=== PATIENT | male | born 1950 | race Caucasian/White ===

== ENCOUNTER 2017-01-02 15:05 | Emergency (ER) | payer MEDICARE, OTHER ==
[2017-01-02] MEDS ORDERED: SODIUM CHLORIDE 0.9% 500 ML IV STA (15:30)
[2017-01-02] MEDS ORDERED: IOHEXOL 350 MG/ML 25 ML BOTTLE (ORAL USE) PO PRN (15:30)
[2017-01-02] MEDS ORDERED: ONDANSETRON 4 MG/2 ML VIAL IVP STA (15:30)
[2017-01-02] MEDS ORDERED: SODIUM CHLORIDE 0.9% 1,000 ML IV STA (15:30)
[2017-01-02] MEDS ORDERED: RX INFO: IV CONTRAST WAS GIVEN 1 EACH MISC MISCELLANE PRN (15:30)
[2017-01-02] MEDS ORDERED: HYDROmorphone 0.5 MG/0.5 ML SYRINGE IVP STA (15:30)
--- NOTE | 2017-01-02 15:35 | ED ---
General Adult HPI - General Chief complaint: Abdominal Pain Stated complaint: chest pain Time Seen by Provider: 01/02/17 15:14 Source: patient, RN notes reviewed Mode of arrival: wheelchair Limitations: no limitations - History of Present Illness Initial comments: 66 yo male with history of hypertension diabetes presents for evaluation of abdominal pain and belching. Patient states over the past 3 days he has had worsening upper abdominal pain and bloating. Patient states he did have a bowel movement yesterday which was normal. He has been passing gas. He has remote history of hernia repair. Denies fever or chills. Denies vomiting, states he has had nausea and constant belching. Denies chest pain or shortness of breath. Patient states he was evaluated at his primary care physician's office yesterday, EKG was obtained and according to the patient EKG was abnormal and he was scheduled to see cardiology as an outpatient. - Related Data Home Medications Medication Instructions Recorded Confirmed Cyanocobalamin [Vitamin B-12] 500 mcg PO DAILY 01/02/17 01/02/17 Febuxostat [Uloric] 80 mg PO DAILY 01/02/17 01/02/17 Insulin Lispro [Humalog] 6 - 15 unit SQ TID PRN 01/02/17 01/02/17 Lisinopril [Zestril] 10 mg PO DAILY 01/02/17 01/02/17 Ulm-3 Fatty Acids/Fish Oil [Fish 1 cap PO DAILY 01/02/17 01/02/17 Oil 1,000 mg Softgel] Ubidecarenone [Co Q-10] 100 mg PO DAILY 01/02/17 01/02/17 Vitamin E 100 unit PO DAILY 01/02/17 01/02/17 metFORMIN HCL [Glucophage] 500 mg PO DAILY 01/02/17 01/02/17 Previous Rx's Medication Instructions Recorded HYDROcodone/APAP 5-325MG [[place] 1 tab PO Q6HR PRN #12 tab 01/02/17 5-325] Ibuprofen [Motrin] 600 mg PO Q8HR PRN #24 tab 01/02/17 Allergies Allergy/AdvReac Type Severity Reaction Status Date / Time No Known Allergies Allergy Verified 01/02/17 16:23 Review of Systems ROS Statement: Those systems with pertinent positive or pertinent negative responses have been documented in the HPI. ROS Other: All systems not noted in ROS Statement are negative. Past Medical History Past Medical History: Diabetes Mellitus, Hypertension Additional Past Medical History / Comment(s): gout History of Any Multi-Drug Resistant Organisms: None Reported Past Surgical History: Back Surgery Past Psychological History: No Psychological Hx Reported Smoking Status: Former smoker Past Alcohol Use History: Occasional Past Drug Use History: None Reported General Exam Limitations: no limitations General appearance: alert, in distress Head exam: Present: atraumatic, normocephalic Eye exam: Present: normal appearance, PERRL ENT exam: Present: normal exam Neck exam: Present: normal inspection, full ROM. Absent: tenderness, meningismus Respiratory exam: Absent: normal lung sounds bilaterally, respiratory distress, wheezes Cardiovascular Exam: Present: regular rate, normal rhythm GI/Abdominal exam: Present: soft, distended, tenderness (Tenderness palpation, worse in the bilateral upper quadrants) Extremities exam: Present: normal inspection, normal capillary refill. Absent: pedal edema Neurological exam: Present: alert, oriented X3, CN II-XII intact. Absent: motor sensory deficit Psychiatric exam: Present: normal affect, normal mood Skin exam: Present: warm, dry, intact. Absent: cyanosis, diaphoretic Course Vital Signs 01/02/17 01/02/17 15:08 15:17 Temperature 98.2 F Pulse Rate 59 L 70 Respiratory 22 22 Rate Blood Pressure 174/108 159/97 O2 Sat by Pulse 99 100 Oximetry Medical Decision Making - Medical Decision Making 66 yo male presenting with chief complaint of abdominal pain, distention, and nausea. No chest pain or shortness of breath. Symptoms present for 3 days. X- rays obtained, shows enteritis first dose. Patient is having bowel movements and passing gas. No nausea or vomiting. Laboratory studies reveal normal lactic acid 1.9, white blood cell count of 9.9, hemoglobin 15.6. CT is obtained , shows wall thickening of the distal ileum and ascending colon infectious versus ileitis. On reevaluation patient is feeling much better, pain is resolved. Patient is offered observation, however he feels he is feeling well enough to go home. He will return the emergency department with development of nausea vomiting, worsening abdominal pain, decreased stool output, or bloody diarrhea. Patient will follow-up with garage manager. He will also return to emergency department with symptoms of chest pain or shortness of breath. Regarding EKG findings from primary care physician, EKG is unchanged no ST segment elevation, no T-wave inversion, normal sinus rhythm ventricular rate 70 , IL of 128, QRS duration 92, QTC 421, possible ectopic atrial rhythm. Patient will maintain his appointment with cardiology. - Lab Data Result diagrams: 01/02/17 15:12 01/02/17 15:12 Lab Results 01/02/17 01/02/17 01/02/17 Range/Units 15:12 15:12 15:12 WBC 9.9 (3.8-10.6) k/uL RBC 5.49 (4.30-5.90) m/uL Hgb 15.6 (13.0-17.5) gm/dL Hct 50.2 (39.0-53.0) % MCV 91.3 (80.0-100.0) fL MCH 28.4 (25.0-35.0) pg MCHC 31.1 (31.0-37.0) g/dL RDW 14.4 (11.5-15.5) % Plt Count 323 (150-450) k/uL Neutrophils % 57 % Lymphocytes % 31 % Monocytes % 7 % Eosinophils % 2 % Basophils % 1 % Neutrophils # 5.7 (1.3-7.7) k/uL Lymphocytes # 3.1 (1.0-4.8) k/uL Monocytes # 0.7 (0-1.0) k/uL Eosinophils # 0.2 (0-0.7) k/uL Basophils # 0.1 (0-0.2) k/uL PT (9.0-12.0) sec INR (<1.2) APTT (22.0-30.0) sec Sodium 137 (137-145) mmol/L Potassium 4.3 (3.5-5.1) mmol/L Chloride 100 (98-107) mmol/L Carbon Dioxide 25 (22-30) mmol/L Anion Gap 12 mmol/L BUN 16 (9-20) mg/dL Creatinine 1.00 (0.66-1.25) mg/dL Est GFR (MDRD) Af Amer >60 (>60 ml/min/1.73 sqM) Est GFR (MDRD) Non-Af >60 (>60 ml/min/1.73 sqM) Glucose 200 H (74-99) mg/dL Plasma Lactic Acid Gopal (0.7-2.0) mmol/L Calcium 10.1 (8.4-10.2) mg/dL Total Bilirubin 0.6 (0.2-1.3) mg/dL AST 20 (17-59) U/L ALT 40 (21-72) U/L Alkaline Phosphatase 72 (38-126) U/L Total Creatine Kinase 61 (55-170) U/L CK-MB (CK-2) 0.8 (0.0-2.4) ng/mL CK-MB (CK-2) Rel Index 1.3 Troponin I <0.012 (0.000-0.034) ng/mL Total Protein 7.3 (6.3-8.2) g/dL Albumin 4.3 (3.5-5.0) g/dL Amylase <30 L (30-110) U/L Lipase 39 (23-300) U/L 01/02/17 01/02/17 Range/Units 15:12 16:00 WBC (3.8-10.6) k/uL RBC (4.30-5.90) m/uL Hgb (13.0-17.5) gm/dL Hct (39.0-53.0) % MCV (80.0-100.0) fL MCH (25.0-35.0) pg MCHC (31.0-37.0) g/dL RDW (11.5-15.5) % Plt Count (150-450) k/uL Neutrophils % % Lymphocytes % % Monocytes % % Eosinophils % % Basophils % % Neutrophils # (1.3-7.7) k/uL Lymphocytes # (1.0-4.8) k/uL Monocytes # (0-1.0) k/uL Eosinophils # (0-0.7) k/uL Basophils # (0-0.2) k/uL PT 10.2 (9.0-12.0) sec INR 1.0 (<1.2) APTT 25.0 (22.0-30.0) sec Sodium (137-145) mmol/L Potassium (3.5-5.1) mmol/L Chloride (98-107) mmol/L Carbon Dioxide (22-30) mmol/L Anion Gap mmol/L BUN (9-20) mg/dL Creatinine (0.66-1.25) mg/dL Est GFR (MDRD) Af Amer (>60 ml/min/1.73 sqM) Est GFR (MDRD) Non-Af (>60 ml/min/1.73 sqM) Glucose (74-99) mg/dL Plasma Lactic Acid Gopal 1.9 (0.7-2.0) mmol/L Calcium (8.4-10.2) mg/dL Total Bilirubin (0.2-1.3) mg/dL AST (17-59) U/L ALT (21-72) U/L Alkaline Phosphatase (38-126) U/L Total Creatine Kinase (55-170) U/L CK-MB (CK-2) (0.0-2.4) ng/mL CK-MB (CK-2) Rel Index Troponin I (0.000-0.034) ng/mL Total Protein (6.3-8.2) g/dL Albumin (3.5-5.0) g/dL Amylase (30-110) U/L Lipase (23-300) U/L Disposition Clinical Impression: Enteritis Disposition: HOME SELF-CARE Condition: Good Instructions: Enteritis (ED) Prescriptions: HYDROcodone/APAP 5-325MG [[place] 5-325] 1 tab PO Q6HR PRN #12 tab PRN Reason: Pain Ibuprofen [Motrin] 600 mg PO Q8HR PRN #24 tab PRN Reason: Pain Referrals: Holly Lopez MD [Primary Care Provider] - 1-2 days Breezy Johnston MD [STAFF PHYSICIAN] - 1-2 days Time of Disposition: 17:08
[2017-01-02 15:43] LABS: Basophils # (A) 0.1 k/uL (0-0.2); Basophils % (A) 1 %; CH 28.6; CHCM 31.5; Eosinophils # (A) 0.2 k/uL (0-0.7); Eosinophils % (A) 2 %; HCT 50.2 % (39.0-53.0); HDW 2.34; HGB 15.6 gm/dL (13.0-17.5); Luc # (Auto) 0.11; Luc % (Auto) 1; Lymphocytes # (A) 3.1 k/uL (1.0-4.8); Lymphocytes % (A) 31 %; MCH 28.4 pg (25.0-35.0); MCHC 31.1 g/dL (31.0-37.0); MCV 91.3 fL (80.0-100.0); Mean Platelet Volume 8.3; Monocytes # (A) 0.7 k/uL (0-1.0); Monocytes % (A) 7 %; Neutrophils # (A) 5.7 k/uL (1.3-7.7); Neutrophils % (A) 57 %; RBC 5.49 m/uL (4.30-5.90); RDW 14.4 % (11.5-15.5); WBC 9.9 k/uL (3.8-10.6); WBC (Perox) 9.52
[2017-01-02 15:52] LABS: ALT 40 U/L (21-72); AST 20 U/L (17-59); Alkaline Phosphatase 72 U/L (38-126); Amylase <30 U/L (30-110); Anion Gap 12 mmol/L; Blood Urea Nitrogen 16 mg/dL (9-20); Calcium 10.1 mg/dL (8.4-10.2); Carbon Dioxide 25 mmol/L (22-30); Chloride 100 mmol/L (98-107); Glucose 200 mg/dL (74-99); Non-African American GFR(MDRD) >60 (>60 ml/min/1.73 sqM); Potassium 4.3 mmol/L (3.5-5.1); Prothrombin Time 10.2 sec (9.0-12.0); Sodium 137 mmol/L (137-145); Total Bilirubin 0.6 mg/dL (0.2-1.3); Total Protein 7.3 g/dL (6.3-8.2)
[2017-01-02 16:03] LABS: Creatine Kinase 61 U/L (55-170)
[2017-01-02 16:16] LABS: Creatine Kinase MB 0.8 ng/mL (0.0-2.4); Troponin I <0.012 ng/mL (0.000-0.034)
--- NOTE | 2017-01-02 16:19 | XR ---
EXAMINATION TYPE: XR KUB DATE OF EXAM: 01/02/2017 CLINICAL DATA: 66-year-old male with abdominal pain, PHH COMPARISON: None FINDINGS: Lung bases are clear. No evidence for free intraperitoneal air. Some scattered air-fluid levels within the right hemicolon and central small bowel. No dilated small bowel seen. Air and stool extends distally into the rectum. Mild overall stool burden. No suspicious calcifications seen. IMPRESSION: No evidence for free air or bowel obstruction. Scattered small bowel and colonic air-fluid levels sug gests enteritis or ileus.
--- NOTE | 2017-01-02 16:39 | CT ---
EXAMINATION TYPE: CT abdomen pelvis w con DATE OF EXAM: 01/02/2017 COMPARISON: NONE HISTORY: 66-year-old male abdominal and Stomach pains TECHNIQUE: Contiguous axial scanning of the abdomen and pelvis following administration of 100 ml Omn ipaque 300 IV contrast. Delayed images through the kidneys and coronal/sagittal reconstructions perf ormed. CT DLP: 1140.5 mGycm Automated exposure control for dose reduction was used. FINDINGS: The heart is normal size without pericardial effusion. Strandy atelectasis in the lower lungs. No ple ural effusion. There is a small hiatal hernia. Borderline ectatic lower descending thoracic aorta 2.5 cm. Numerous hypodense lesions within the liver, most are subcentimeter, largest measuring 1.3 cm in the left lobe. All of these are too small for accurate CT characterization and likely represent cysts. Portal venous system is patent. No biliary ductal dilatation. Gallbladder hydropic at 4.5 cm wide but without any surrounding inflammatory change. Adrenal glands, kidneys, spleen, atrophic pancreas show no gross abnormality. No dilated small bowel, free fluid, or free air. Scattered small mesenteric lymph nodes. Surgical material at the umbilicus suggesting prior hernia repair. Some mild fold thickening of distal ileal loops and liquid stool in the ascending colon. Otherwise, m oderate stool throughout the remainder of the colon. No pericolonic inflammatory change. Prostate gland mildly enlarged at 4.8 cm wide. Bladder is urine distended. No abnormal fluid collecti on in the pelvis or pelvic lymphadenopathy seen. Bones: Mild degenerative changes at the hips and lower lumbar spine. No osseous destructive process. Grade 1 retrolisthesis at L3-L4. IMPRESSION: 1. Wall thickening of distal ileal loops and liquid stool in the ascending colon. Findings suggest in fectious or inflammatory ileitis. 2. Hydropic gallbladder likely relates to fasting state. No surrounding inflammatory changes. If conc chrystal for early acute cholecystitis, follow-up ultrasound or HIDA scan. 3. Small hiatal hernia.
[2017-01-02 17:38] VITALS: BP 145/93; PULSE 60; RESP 16; TEMP 97.9
== END 2017-01-02 17:35 | disposition home or self-care (01) ==
LOC: EC 15:05
DX: K52.9 Noninfective gastroenteritis and colitis, unspecified (principal); R14.2 Eructation; E11.9 Type 2 diabetes mellitus without complications; I10 Essential (primary) hypertension; Z87.891 Personal history of nicotine dependence; Z79.84 Long term (current) use of oral hypoglycemic drugs; Z79.899 Other long term (current) drug therapy
CPT/HCPCS: 36415; 93005; 80053; 82150; 82550; 82553; 83605; 83690; 84484; 85025; 85610; 85730; 74000; 74177; 99284; 96374; 96375; 96361 ×2; J2405; Q9967; J1170

== ENCOUNTER → 2019-12-17 | Outpatient (CLI) | payer MEDICARE, OTHER | END | disposition home or self-care (01) | LOC: LABWHC1 15:50 | PROVIDERS: ATTEND Emergency Medicine | DX: Z20.828 Contact with and (suspected) exposure to other viral communicable diseases (principal) | CPT/HCPCS: U0003; C9803 ==

== ENCOUNTER → 2019-12-26 | Outpatient (CLI) | payer MEDICARE, OTHER | END | disposition home or self-care (01) | LOC: LABWHC1 09:12 | PROVIDERS: ATTEND Emergency Medicine | DX: Z20.828 Contact with and (suspected) exposure to other viral communicable diseases (principal) | CPT/HCPCS: U0003; C9803 ==

== ENCOUNTER → 2021-03-07 | Outpatient (CLI) | payer MEDICARE ==
--- NOTE | 2021-03-07 13:23 | XR ---
Cervical spine HISTORY: Neck pain 4 views of the cervical spine There is multilevel facet arthropathy. Multilevel spondylosis is present. Cervical vertebral bodies s how preserved height. Bone mineralization is reduced. There are atherosclerotic vascular calcificatio ns present in the distribution of the carotid arteries. Loss of disc height present at C5-6, C6-7. M inimal retrolisthesis grade 1 C2-3. The vertebral soft tissues are normal. IMPRESSION: Degenerative disc disease and facet arthropathy.
--- NOTE | 2021-03-07 13:24 | XR ---
Left shoulder HISTORY: Pain 2 views the left shoulder Acromioclavicular joint shows arthropathy. Left upper lobe is unremarkable. Aorta is dense. Bone mineralization, alignment are maintained. No fracture or dislocation. No external rotation view submitted. IMPRESSION: Acromioclavicular joint arthropathy.
== END | disposition home or self-care (01) ==
LOC: RADXRMAIN 10:57
PROVIDERS: ATTEND Internal Medicine
DX: M47.812 Spondylosis without myelopathy or radiculopathy, cervical region (principal); M50.30 Other cervical disc degeneration, unspecified cervical region; M12.812 Other specific arthropathies, not elsewhere classified, left shoulder
CPT/HCPCS: 72040

== ENCOUNTER 2024-02-18 09:19 | Inpatient (IN) | payer MEDICARE ==
--- NOTE | 2024-02-18 10:18 | ED ---
Fall HPI - General Chief Complaint: Fall Stated Complaint: lt shoulder pain Time Seen by Provider: 02/18/24 10:17 Source: patient, RN notes reviewed Mode of arrival: wheelchair Limitations: no limitations - History of Present Illness Initial Comments: 73-year-old male presented to ER for evaluation of fall and hypertension. Patient sent by urgent care. Patient states on 02-16-2024 he was taking his dog to the dog park. The dog pulled to play with another dog whilst on the leash causing patient to fall. He states he landed on his left shoulder and left side. He denies head injury, loss of consciousness, dizziness or lightheadedness prior to fall. No blood thinner use. Patient reports his glasses did hit the ground causing him to have an abrasion to his left cheek. Tetanus is up-to-date. Patient states since then he has been having progressive worsening of left shoulder/back pain since fall. He states it hurts to sit, stand or move. He denies any paresthesias to left upper extremity. He does report pain to his left back especially with inspiration. He has taken [id number] ibuprofen without relief. Patient was seen at urgent care today for x-rays and was found to be hypertensive and tachycardic. Patient denies any current chest pain, shortness of breath, dizziness or lightheadedness. No history of blood clots, recent travel or calf tenderness. Patient had does not take any medications for blood pressure. Patient states he has taken lisinopril in the past but has not "in awhile". He states when he was taking it he was only taking it as needed when he felt "off". - Related Data Home Medications Medication Instructions Recorded Confirmed Insulin NPH Hum/Reg Insulin Hm 30 unit SQ AC-BID 02/18/24 02/18/24 [NovoLIN 70-30 100 Unit/ml Vial] Allergies Allergy/AdvReac Type Severity Reaction Status Date / Time No Known Allergies Allergy Verified 02/18/24 12:55 Review of Systems ROS Statement: Those systems with pertinent positive or pertinent negative responses have been documented in the HPI. ROS Other: All systems not noted in ROS Statement are negative. Past Medical History Past Medical History: Diabetes Mellitus, Hypertension Additional Past Medical History / Comment(s): gout History of Any Multi-Drug Resistant Organisms: None Reported Past Surgical History: Back Surgery Past Psychological History: No Psychological Hx Reported Smoking Status: Never smoker Past Alcohol Use History: Occasional Past Drug Use History: None Reported General Exam Limitations: physical limitation General appearance: alert, in no apparent distress Head exam: Present: atraumatic, normocephalic, normal inspection Eye exam: Present: normal appearance, PERRL, EOMI. Absent: scleral icterus, conjunctival injection, periorbital swelling Pupils: Present: normal accommodation Respiratory exam: Present: normal lung sounds bilaterally. Absent: respiratory distress, wheezes, rales, rhonchi, stridor Cardiovascular Exam: Present: normal rhythm, tachycardia, normal heart sounds Neurological exam: Present: alert, oriented X3, CN II-XII intact Skin exam: Present: warm, dry, intact, normal color, abrasion (left cheek). Absent: rash Course Vital Signs 02/18/24 02/18/24 02/18/24 09:46 10:30 11:20 Temperature 97.7 F Pulse Rate 129 H 138 H 135 H Respiratory 18 18 18 Rate Blood Pressure 159/103 138/99 129/103 O2 Sat by Pulse 98 99 98 Oximetry 02/18/24 02/18/24 14:41 15:30 Temperature Pulse Rate 133 H 133 H Respiratory 18 18 Rate Blood Pressure 126/105 139/78 O2 Sat by Pulse 97 98 Oximetry - Reevaluation(s) Reevaluation #1: 02/18/24 13:01 Case discussed with [facility] Dr.Mullally evans for admission. Medical Decision Making - Medical Decision Making Was pt. sent in by a medical professional or institution (, PA, SPREADER OPERATOR AUTOMATIC, urgent care, hospital, or group home...) When possible be specific @ -Patient sent by urgent care for evaluation of tachycardia and hypertension. Did you speak to anyone other than the patient for history (EMS, parent, family, police, friend...)? What history was obtained from this source @ -No Did you review nursing and triage notes (agree or disagree)? Why? @ -I reviewed and agree with nursing and triage notes Were old charts reviewed (outside hosp., previous admission, EMS record, old EKG, old radiological studies, urgent care reports/EKG's, group home records)? Report findings @ -No old charts were reviewed Differential Diagnosis (chest pain, altered mental status, abdominal pain women, abdominal pain men, vaginal bleeding, weakness, fever, dyspnea, syncope, headache, dizziness, GI bleed, back pain, seizure, CVA, palpatations, mental health, musculoskeletal)? @ -Differential Palpitations: Ventricular arrhythmias, atrial arrhythmias, myocardial infarction, anemia, thyrotoxicosis, electrolyte imbalance, hypokalemia, pulmonary embolism, pulmonary disease, drugs, alcohol, anxiety, stress.... This is not meant to be an all-inclusive list. EKG interpreted by me (3pts min.). @ -As above X-rays interpreted by me (1pt min.). @ -Left ribs AP chest x-ray interpreted by me remarkable for irregularities noted to fifth and seventh rib concerning of fractures. No acute cardiopulmonary process. CT interpreted by me (1pt min.). @ -None done U/S interpreted by me (1pt. min.). @ -None done What testing was considered but not performed or refused? (CT, X-rays, U/S, labs)? Why? @ -None What meds were considered but not given or refused? Why? @ -None Did you discuss the management of the patient with other professionals (professionals i.e. , PA, SPREADER OPERATOR [employer], lab, RT, psych nurse, director social service, oiler helper, teacher, special loan officer, case sealer)? Give summary @ -Case discussed with Dr. Meyer for admission. Was smoking cessation discussed for >3mins.? @ -No Was critical care preformed (if so, how long)? @ -No Were there social determinants of health that impacted care today? How? (Homelessness, low income, unemployed, alcoholism, drug addiction, transportation, low edu. Level, literacy, decrease access to med. care, correction, rehab)? @ -Patient currently does not have a PCP as his recently retired. Was there de-escalation of care discussed even if they declined (Discuss DNR or withdrawal of care, Hospice)? DNR status @ -No What co-morbidities impacted this encounter? (DM, HTN, Smoking, COPD, CAD, Cancer, CVA, ARF, Chemo, Hep., AIDS, mental health diagnosis, sleep apnea, morbid obesity)? @ -None Was patient admitted / discharged? Hospital course, mention meds given and route, prescriptions, significant lab abnormalities, going to OR and other pertinent info. @ -Admitted. 73-year-old male presented the ER for evaluation of tachycardia/hypertension. Patient sent by urgent care. Upon evaluation, patient tachycardic at 129 bpm and hypertensive 159/103. Patient afebrile. Vitals otherwise within acceptable limits. Patient has tenderness to posterior left ribs with no overlying skin changes. No paradoxical chest wall motions. No acute neurological findings on exam. GCS 15. Given tachycardia cardiac workup will be obtained. EKG showing sinus tachycardia with inverted T waves in lead III and aVF. No ST segment changes. Laboratory studies showing a leukocytosis 12.2 with a left shift. D-dimer negative at 0.48. Troponin undetectable <0.012. CMP unremarkable. Chest x-ray showing mild displacment of 5th and 7th left ribs. CXR findings likely due from fall. Patient received IV fluids in the ER. Patient given lidocaine patch and ibuprofen for pain control due to rib fractures. Given tachycardia with unknown etiology admission was considered and discussed with Dr. Meyer for cardiac consult. Cardiology on consult. Upon reevaluation, patient resting comfortably in exam room no signs of acute distress. Patient is agreeable for admission. Case discussed with ED attending, Dr. Munroe. Undiagnosed new problem with uncertain prognosis? @ -No Drug Therapy requiring intensive monitoring for toxicity (Heparin, Nitro, Insulin, Cardizem)? @ -No Were any procedures done? @ -No Diagnosis/symptom? @ -Tachycardia/rib fractures Acute, or Chronic, or Acute on Chronic? @ -Acute Uncomplicated (without systemic symptoms) or Complicated (systemic symptoms)? @ -Complicated Side effects of treatment? @ -No Exacerbation, Progression, or Severe Exacerbation? @ -No Poses a threat to life or bodily function? How? (Chest pain, USA, AL, pneumonia, PE, COPD, DKA, ARF, appy, cholecystitis, CVA, Diverticulitis, Homicidal, Suicidal, threat to staff... and all critical care pts) @ -Yes - Lab Data Result diagrams: 02/18/24 10:35 02/18/24 10:35 Lab Results 02/18/24 02/18/24 02/18/24 Range/Units 10:35 10:35 10:35 WBC 12.2 H (3.8-10.6) k/uL RBC 5.23 (4.30-5.90) m/uL Hgb 15.1 (13.0-17.5) gm/dL Hct 47.6 (39.0-53.0) % MCV 91.0 (80.0-100.0) fL MCH 28.9 (25.0-35.0) pg MCHC 31.8 (31.0-37.0) g/dL RDW 13.4 (11.5-15.5) % Plt Count 293 (150-450) k/uL MPV 9.7 Neutrophils % 72 % Lymphocytes % 18 % Monocytes % 6 % Eosinophils % 2 % Basophils % 0 % Neutrophils # 8.7 H (1.3-7.7) k/uL Lymphocytes # 2.2 (1.0-4.8) k/uL Monocytes # 0.7 (0-1.0) k/uL Eosinophils # 0.3 (0-0.7) k/uL Basophils # 0.0 (0-0.2) k/uL PT 10.7 (10.0-12.5) sec INR 1.0 (<1.2) APTT 22.7 (22.0-30.0) sec D-Dimer 0.48 (<0.60) mg/L FEU Sodium 136 L (137-145) mmol/L Potassium 4.7 (3.5-5.1) mmol/L Chloride 104 (98-107) mmol/L Carbon Dioxide 25 (22-30) mmol/L Anion Gap 7 mmol/L BUN 14 (9-20) mg/dL Creatinine 0.85 (0.66-1.25) mg/dL Est GFR (CKD-EPI)AfAm >90 (>60 ml/min/1.73 sqM) Est GFR (CKD-EPI)NonAf 87 (>60 ml/min/1.73 sqM) Glucose 309 H (74-99) mg/dL Calcium 8.9 (8.4-10.2) mg/dL Magnesium 1.9 (1.6-2.3) mg/dL Total Bilirubin 1.0 (0.2-1.3) mg/dL AST 18 (17-59) U/L ALT 19 (4-49) U/L Alkaline Phosphatase 90 (38-126) U/L Troponin I (0.000-0.034) ng/mL Total Protein 6.4 (6.3-8.2) g/dL Albumin 3.8 (3.5-5.0) g/dL 02/18/24 Range/Units 10:35 WBC (3.8-10.6) k/uL RBC (4.30-5.90) m/uL Hgb (13.0-17.5) gm/dL Hct (39.0-53.0) % MCV (80.0-100.0) fL MCH (25.0-35.0) pg MCHC (31.0-37.0) g/dL RDW (11.5-15.5) % Plt Count (150-450) k/uL MPV Neutrophils % % Lymphocytes % % Monocytes % % Eosinophils % % Basophils % % Neutrophils # (1.3-7.7) k/uL Lymphocytes # (1.0-4.8) k/uL Monocytes # (0-1.0) k/uL Eosinophils # (0-0.7) k/uL Basophils # (0-0.2) k/uL PT (10.0-12.5) sec INR (<1.2) APTT (22.0-30.0) sec D-Dimer (<0.60) mg/L FEU Sodium (137-145) mmol/L Potassium (3.5-5.1) mmol/L Chloride (98-107) mmol/L Carbon Dioxide (22-30) mmol/L Anion Gap mmol/L BUN (9-20) mg/dL Creatinine (0.66-1.25) mg/dL Est GFR (CKD-EPI)AfAm (>60 ml/min/1.73 sqM) Est GFR (CKD-EPI)NonAf (>60 ml/min/1.73 sqM) Glucose (74-99) mg/dL Calcium (8.4-10.2) mg/dL Magnesium (1.6-2.3) mg/dL Total Bilirubin (0.2-1.3) mg/dL AST (17-59) U/L ALT (4-49) U/L Alkaline Phosphatase (38-126) U/L Troponin I <0.012 (0.000-0.034) ng/mL Total Protein (6.3-8.2) g/dL Albumin (3.5-5.0) g/dL - EKG Data -: EKG Interpreted by Me EKG Comments: EKG taken at 10: 30 showing a sinus tachycardia. Inverted T waves in lead III and aVF. Ventricular rate 133, QRS duration 105, QT/QTc 289/367. - Radiology Data Radiology results: report reviewed, image reviewed Disposition Clinical Impression: Tachycardia, Rib fractures Disposition: ADMITTED IP TO THIS [facility] Condition: Stable Time of Disposition: 13:01
[2024-02-18 10:51] LABS: Basophils % (A) 0 %; Eosinophils # (A) 0.3 k/uL (0-0.7); Eosinophils % (A) 2 %; HCT 47.6 % (39.0-53.0); HGB 15.1 gm/dL (13.0-17.5); Lymphocytes # (A) 2.2 k/uL (1.0-4.8); Lymphocytes % (A) 18 %; MCH 28.9 pg (25.0-35.0); MCHC 31.8 g/dL (31.0-37.0); Mean Platelet Volume 9.7; Monocytes # (A) 0.7 k/uL (0-1.0); Monocytes % (A) 6 %; Neutrophils # (A) 8.7 k/uL (1.3-7.7); Neutrophils % (A) 72 %; Platelet Count 293 k/uL (150-450); RBC 5.23 m/uL (4.30-5.90); RDW 13.4 % (11.5-15.5); WBC 12.2 k/uL (3.8-10.6)
[2024-02-18] MEDS: IBUPROFEN 600 MG TAB PO STA (10:51)
[2024-02-18] MEDS: SODIUM CHLORIDE 0.9% 1,000 ML IV STA (10:52)
--- NOTE | 2024-02-18 10:53 | XR ---
EXAMINATION TYPE: XR ribs LT w pa chest xray DATE OF EXAM: 02/18/2024 10:48 AM COMPARISON: None CLINICAL INDICATION: Male, 73 years old with history of fall; PHH, pain TECHNIQUE: XR ribs LT w pa chest xray; Frontal and oblique views of the ribs with frontal chest radio graph. FINDINGS: Left lateral rib 5 and 7 fractures. No definitive fracture line seen in the 6. The remainde r of the ribs have a normal appearance. No evidence of fracture. Overall, the lungs are clear. The cardiac silhouette is normal in size. The remaining osseous structures are intact. IMPRESSION: Left lateral rib 5 and 7 fractures identified with mild displacement.. [facility], , 02/18/2024 10:51 AM
[2024-02-18 11:01] LABS: ALT 19 U/L (4-49); AST 18 U/L (17-59); African American GFR (CKD) >90 (>60 ml/min/1.73 sqM); Albumin 3.8 g/dL (3.5-5.0); Alkaline Phosphatase 90 U/L (38-126); Anion Gap 7 mmol/L; Blood Urea Nitrogen 14 mg/dL (9-20); Calcium 8.9 mg/dL (8.4-10.2); Carbon Dioxide 25 mmol/L (22-30); Chloride 104 mmol/L (98-107); Glucose 309 mg/dL (74-99); Magnesium 1.9 mg/dL (1.6-2.3); Non-African American GFR(CKD) 87 (>60 ml/min/1.73 sqM); Potassium 4.7 mmol/L (3.5-5.1); Sodium 136 mmol/L (137-145); Total Protein 6.4 g/dL (6.3-8.2)
[2024-02-18 11:08] LABS: Partial Thromboplastin Time 22.7 sec (22.0-30.0); Prothrombin Time 10.7 sec (10.0-12.5)
[2024-02-18] MEDS ORDERED: HYDROmorphone 0.5 MG/0.5 ML SYRINGE IVP PRN (12:58)
[2024-02-18] MEDS ORDERED: ACETAMINOPHEN TAB 325 MG TAB PO PRN (12:58)
[2024-02-18] MEDS ORDERED: NALOXONE 0.4 MG/ML 1 ML VIAL IV PRN (12:58)
[2024-02-18] MEDS: SODIUM CHLORIDE 0.9% 1,000 ML IV SCH (13:20)
[2024-02-18] MEDS: LIDOCAINE 4% PATCH TOPICAL ONE (13:22)
[2024-02-18 16:36] LABS: Glucose,Whole Blood 347 mg/dL (70-110)
[2024-02-18] MEDS ORDERED: DEXTROSE 50% SYRINGE 50 ML IVP PRN ×2 (16:38)
[2024-02-18] MEDS: INSULIN ASPART (NovoLOG) 100 UNIT/ML VIAL SQ SCH (16:58)
[2024-02-18 20:11] LABS: Glucose,Whole Blood 311 mg/dL (70-110)
[2024-02-19] MEDS: LOSARTAN 25 MG TAB PO SCH (00:26)
--- NOTE | 2024-02-19 03:16 | HP ---
HISTORY AND PHYSICAL Came to the emergency room after being pulled by his dog, which made him slide on the ice and fell on the left side of his back. He had severe pain over the last 24 hours, is found to have broken ribs in the posterior thoracic ribs on the left side where his pain is. He came into the hospital due to severe tachycardia, which he thinks is due to pain. He has had bowel ulcers. Hypertension was high. He had multiple to the hospital. He is to be on lisinopril, but is not taking it. HOME MEDICINES: Apparently he is on Novolin 70/30, 30 units b.i.d. No other medications. ALLERGIES: Negative. REVIEW OF SYSTEMS: A 14-point review of systems otherwise negative. PAST MEDICAL HISTORY: Diabetes, hypertension. PAST SURGICAL HISTORY: Back surgery. SOCIAL HISTORY: No smoking or alcohol. PHYSICAL EXAMINATION: GENERAL: Pleasant male, in no acute distress. CARDIOVASCULAR: S1, S2. LUNGS: Clear. MUSCULOSKELETAL: There is palpation in posterolateral left ribs, T5, T7 area corresponding to the rib fractures on the x-ray, no displacement on X-ray. HEART: S1, S2. Pulse is around 80 currently. NEUROLOGIC: Cranial nerves are intact. PSYCHIATRIC: Alert and oriented x3. Appropriate answers. SKIN: Warm, dry, intact. VITAL SIGNS: Pulse goes up to 120s, down to 80s, temp 97.7, blood pressure 159/103 to 129/103. hydralazine if it goes high, admit the patient. Cardiology consult for tachycardia in ICU because the patient had overflow. Echo has been ordered. Cardiac ordered. Prognosis guarded. Please see further orders. MMODL / IJN: [id number] /
[2024-02-19] MEDS: HYDROcodone/APAP 5-325MG 1 EACH TAB PO PRN (04:57)
[2024-02-19 06:10] LABS: Glucose,Whole Blood 260 mg/dL (70-110)
[2024-02-19] MEDS ORDERED: HEPARIN SODIUM 1,000 UN/ML (10ML VL) IV PRN (08:00)
[2024-02-19] MEDS ORDERED: AMIODARONE 360 MG in DEXTROSE 5% IN WATER 200 ML IV ONE (08:30)
[2024-02-19 08:34] LABS: Basophils % (A) 1 %; Eosinophils # (A) 0.3 k/uL (0-0.7); Eosinophils % (A) 3 %; HCT 46.2 % (39.0-53.0); HGB 14.2 gm/dL (13.0-17.5); Hypochromasia Moderate; Lymphocytes % (A) 23 %; MCH 29.1 pg (25.0-35.0); MCHC 30.7 g/dL (31.0-37.0); MCV 94.5 fL (80.0-100.0); Mean Platelet Volume 9.8; Monocytes # (A) 0.6 k/uL (0-1.0); Monocytes % (A) 7 %; Neutrophils # (A) 5.6 k/uL (1.3-7.7); Neutrophils % (A) 65 %; Platelet Count 257 k/uL (150-450); RBC 4.89 m/uL (4.30-5.90); RDW 13.1 % (11.5-15.5); WBC 8.7 k/uL (3.8-10.6)
[2024-02-19 08:49] LABS: Prothrombin Time 11.2 sec (10.0-12.5)
--- NOTE | 2024-02-19 08:49 | P.CRDCN ---
History of Present Illness Consult date: 02/19/24 History of present illness: - . HPI: This is a 73-year-old gentleman with a known diagnosis of type 2 diabetes who takes insulin. He also has hypertension used to take lisinopril. He has not seen a physician in at least 2 years. On Sunday while walking his dog he was pulled and he fell down and fractured his ribs 5 and 7 lateral aspect. He went to the urgent care was found to be tachycardic and sent to the emergency room. D-dimer was normal TSH was normal he appears to be in what is a atrial tachycardia/SVT at a rate of about 130 bpm rhythm is quite regular. I am asked to see him in this regard. I am recommending that we initiate him on amiodarone bolus and drip and also add losartan for BP control. His blood sugars are fairly well-controlled hemoglobin A1c is pending complaints of pain localized to the lateral aspect of the rib and also he has discomfort when he takes a deep breath. While I was evaluating him he converted to sinus rhythm with a borderline first-degree AV block. I will however give him the bolus of amiodarone 150 mg and 6 hours of drip. He is going in and out of atrial tachycardia at this time. His thyroid functions are normal.. RELEVANT PAST MEDICAL HISTORY: Includes type 2 diabetes on insulin, hypertension and probable hyperlipidemia. MEDICATIONS: Insulin only stopped taking lisinopril ALLERGIES: None. REVIEW OF SYSTEMS: No hematemesis or melena genitourinary symptoms fever with chills or cough with expectoration. Recent fall and chest wall injury and palpitations are the current issues. PHYSICIAL EXAM: Blood pressure is 150/90 no JVD S1-S2 heard normally no significant murmurs lungs are clear abdomen is soft, lower extremities reveal diminished pulses, no edema. Central nervous system is normal. IMPRESSION: 1. Atrial tachycardia. 2. Recent mechanical fall and fracture of ribs 5 and 7 on the left side laterally. 3. Type 2 diabetes mellitus. 4. Hypertension. 5. Hypercholesterolemia. RECOMMENDATIONS: Advised amiodarone bolus and drip, echocardiogram, losartan and also a statin agent. Will check hemoglobin A1c also. Cardiac oliveira we will place him on 12.5 mg twice daily Lopressor in the long-term after amiodarone bolus. If he remains in sinus rhythm and does well he can be discharged either later on today or more likely tomorrow will check echocardiogram to assess LV function. I discussed my thoughts in detail with the patient he actually converted to sinus rhythm while I was seeing him but goes back and forth.. Past Medical History Past Medical History: Diabetes Mellitus, Hypertension Additional Past Medical History / Comment(s): gout History of Any Multi-Drug Resistant Organisms: None Reported Past Surgical History: Back Surgery Additional Past Surgical History / Comment(s): partial thyroidectomy Past Psychological History: No Psychological Hx Reported Smoking Status: Never smoker Past Alcohol Use History: Occasional Past Drug Use History: None Reported Medications and Allergies Home Medications Medication Instructions Recorded Confirmed Type Insulin NPH Hum/Reg Insulin Hm 30 unit SQ AC-BID 02/18/24 02/18/24 History [NovoLIN 70-30 100 Unit/ml Vial] Allergies Allergy/AdvReac Type Severity Reaction Status Date / Time No Known Allergies Allergy Verified 02/18/24 12:55 Physical Exam Vitals: Vital Signs Temp Pulse Pulse Resp BP BP Pulse Ox 02/19/24 04:00 98.1 F 66 14 127/82 100 02/19/24 00:00 97.6 F 59 L 16 165/95 99 02/18/24 20:00 97.5 F L 64 16 149/99 98 02/18/24 16:00 131 H 18 02/18/24 15:59 98.1 F 131 H 18 111/94 98 02/18/24 15:30 133 H 18 139/78 98 02/18/24 14:41 133 H 18 126/105 97 02/18/24 11:20 135 H 18 129/103 98 02/18/24 10:30 138 H 18 138/99 99 02/18/24 09:46 97.7 F 129 H 18 159/103 98 Intake and Output 02/18/24 02/19/24 02/19/24 22:59 06:59 14:59 Intake Total 150 900 Balance 150 900 Intake: IV 150 900 Sodium Chloride 0.9% 1, 150 900 000 ml @ 75 mls/hr IV . [id number] [facility] Rx#:[id number] Other: Voiding Method Toilet Toilet # Voids 1 2 Weight 92.8 kg Results 02/19/24 06:15 02/18/24 10:35 Cardiac Enzymes 02/18/24 02/18/24 Range/Units 10:35 10:35 AST 18 (17-59) U/L Troponin I <0.012 (0.000-0.034) ng/mL Coagulation 02/18/24 Range/Units 10:35 PT 10.7 (10.0-12.5) sec APTT 22.7 (22.0-30.0) sec CBC 02/18/24 02/19/24 Range/Units 10:35 06:15 WBC 12.2 H 8.7 (3.8-10.6) k/uL RBC 5.23 4.89 (4.30-5.90) m/uL Hgb 15.1 14.2 (13.0-17.5) gm/dL Hct 47.6 46.2 (39.0-53.0) % Plt Count 293 257 (150-450) k/uL Comprehensive Metabolic Panel 02/18/24 Range/Units 10:35 Sodium 136 L (137-145) mmol/L Potassium 4.7 (3.5-5.1) mmol/L Chloride 104 (98-107) mmol/L Carbon Dioxide 25 (22-30) mmol/L BUN 14 (9-20) mg/dL Creatinine 0.85 (0.66-1.25) mg/dL Glucose 309 H (74-99) mg/dL Calcium 8.9 (8.4-10.2) mg/dL AST 18 (17-59) U/L ALT 19 (4-49) U/L Alkaline Phosphatase 90 (38-126) U/L Total Protein 6.4 (6.3-8.2) g/dL Albumin 3.8 (3.5-5.0) g/dL Current Medications Generic Name Dose Route Start Last Admin Trade Name Freq PRN Reason Stop Dose Admin Acetaminophen 650 mg 02/18/24 12:58 Acetaminophen Tab 325 Mg Tab PO Q6HR PRN Mild Pain or Fever > 100.5 Hydrocodone Bitart/Acetaminophen 1 each 02/18/24 13:00 02/19/24 04:57 Hydrocodone/Apap 5-325mg 1 Each Tab PO 1 each Q8HR PRN Administration Pain Scale 7 to 10 Dextrose/Water 25 ml 02/18/24 16:38 Dextrose 50% Syringe 50 Ml IVP PER PROTOCOL PRN Hypoglycemia Protocol Dextrose/Water 50 ml 02/18/24 16:38 Dextrose 50% Syringe 50 Ml IVP PER PROTOCOL PRN Hypoglycemia Protocol Heparin Sodium (Porcine) 5,000 unit 02/19/24 09:00 Heparin Sodium,Porcine 5,000 Unit/Ml 1 Ml Vial SQ Q12HR [facility] Sodium Chloride 1,000 mls @ 75 mls/hr 02/18/24 13:00 02/19/24 00:28 Saline 0.9% IV 75 mls/hr .[id number] [facility] Administration Insulin Aspart 0 unit 02/18/24 17:30 02/19/24 08:18 Insulin Aspart (Novolog) 100 Unit/Ml Vial SQ Not Given ACHS [facility] Protocol Losartan Potassium 12.5 mg 02/19/24 00:15 02/19/24 00:26 Losartan 25 Mg Tab PO 12.5 mg DAILY [facility] Administration Metoprolol Tartrate 12.5 mg 02/19/24 09:00 Metoprolol Tartrate 12.5 Mg Tab PO BID [facility] Naloxone HCl 0.2 mg 02/18/24 12:58 Naloxone 0.4 Mg/Ml 1 Ml Vial IV Q2M PRN Opioid Reversal Intake and Output 02/18/24 02/19/24 02/19/24 22:59 06:59 14:59 Intake Total 150 900 Balance 150 900 Intake: IV 150 900 Sodium Chloride 0.9% 1, 150 900 000 ml @ 75 mls/hr IV . [id number] [facility] Rx#:[id number] Other: Voiding Method Toilet Toilet # Voids 1 2 Weight 92.8 kg 02/19/24 06:15 02/18/24 10:35
[2024-02-19] MEDS: DEXTROSE 5% IN WATER 100 ML with AMIODARONE 150 MG IV ONE (09:00)
[2024-02-19] MEDS: HEPARIN SODIUM,PORCINE 5,000 UNIT/ML 1 ML VIAL SQ SCH (09:11)
[2024-02-19] MEDS: amLODIPine 5 MG TAB PO STA (09:11)
[2024-02-19] MEDS: METOPROLOL TARTRATE 12.5 MG TAB PO SCH (09:11)
[2024-02-19] MEDS: ATORVASTATIN 20 MG TAB PO SCH (09:11)
[2024-02-19] MEDS: AMIODARONE 360 MG in DEXTROSE 5% IN WATER 200 ML IV ONE (09:15)
[2024-02-19 10:45] VITALS: BMI 29.3
[2024-02-19 11:35] LABS: Glucose,Whole Blood 368 mg/dL (70-110)
[2024-02-19] MEDS: LOSARTAN 50 MG TAB PO SCH (12:39)
[2024-02-19] MEDS: LIDOCAINE 4% PATCH TOPICAL SCH (12:39)
[2024-02-19] MEDS ORDERED: AMIODARONE 450 MG in DEXTROSE 5% IN WATER 250 ML IV SCH (14:30)
[2024-02-19] MEDS: AMIODARONE 450 MG in DEXTROSE 5% IN WATER 250 ML IV SCH (15:57)
[2024-02-19 17:00] LABS: Glucose,Whole Blood 363 mg/dL (70-110)
--- NOTE | 2024-02-19 17:53 | CA ---
Transthoracic Echo Report Name: Rafat Mix Age: 73 Gender: M : 1950 Exam Date: 02/19/2024 08:16 Exam Location: [facility] Ht (in): 70 Wt (lb): 203 Ordering Physician: Andrzej Meyer MD Attending/Referring Phys: Clamp Carrier Operator Malia Garcia RDCS Procedure CPT: Indications: tachycardia Cardiac Hx: Technical Quality: Fair Contrast 1: Total Dose (mL): Contrast 2: Total Dose (mL): MEASUREMENTS (Male / Female) Normal Values 2D ECHO LV Diastolic Diameter PLAX 3.7 cm 4.2 - 5.9 / 3.9 - 5.3 cm LV Systolic Diameter PLAX 2.1 cm IVS Diastolic Thickness 1.6 cm 0.6 - 1.0 / 0.6 - 0.9 cm LVPW Diastolic Thickness 1.8 cm 0.6 - 1.0 / 0.6 - 0.9 cm LV Relative Wall Thickness 0.9 RV Internal Dim ED PLAX 2.6 cm LA Systolic Diameter LX 4.1 cm 3.0 - 4.0 / 2.7 - 3.8 cm LV Diastolic Volume MOD BP 64.0 cm??? 67 - 155 / 56 - 104 cm??? LV Systolic Volume MOD BP 18.4 cm??? 22 - 58 / 19 - 49 cm??? LV Ejection Fraction MOD BP 71.3 % >= 55 % LV Cardiac Index MOD BP 1652.4 cm???/min???m??? LV Diastolic Volume MOD 4C 62.8 cm??? LV Systolic Volume MOD 4C 11.9 cm??? LV Ejection Fraction MOD 4C 81.0 % LV Cardiac Index MOD 4C 1842.3 cm???/min???m??? LV Diastolic Length 4C 7.3 cm LV Systolic Length 4C 6.0 cm LV Diastolic Volume MOD 2C 64.1 cm??? LV Systolic Volume MOD 2C 25.9 cm??? LV Ejection Fraction MOD 2C 59.6 % LV Cardiac Index MOD 2C 1383.3 cm???/min???m??? LV Diastolic Length 2C 7.1 cm LV Systolic Length 2C 6.6 cm LA Volume 80.0 cm??? 18 - 58 / 22 - 52 cm??? LA Volume Index 37.2 cm???/m??? 16 - 28 cm???/m??? M-MODE Aortic Root Diameter MM 3.8 cm LA Systolic Diameter MM 3.6 cm LA Ao Ratio MM 1.0 AV Cusp Separation MM 2.1 cm DOPPLER AI Peak Velocity 275.5 cm/s AI Peak Gradient 30.4 mmHg AI Pressure Half Time 1251.5 ms MV Area PHT 4.3 cm??? Mitral E Point Velocity 80.4 cm/s Mitral A Point Velocity 1.1 cm/s Mitral E to A Ratio 73.0 MV Deceleration Time 177.5 ms TR Peak Velocity 240.0 cm/s TR Peak Gradient 23.0 mmHg Right Ventricular Systolic Press 27.5 mmHg FINDINGS Left Ventricle Left ventricular ejection fraction is estimated at 55-60 %.Severely increased left ventricular wall thickness. Left ventricular cavity size normal. Normal left ventricular systolic function with no obvious regional wall motion abnormalities. Right Ventricle Normal right ventricular size and function. Right ventricular systolic pressure within normal limits. Right Atrium Normal right atrial size. Left Atrium Mildly increased left atrial diameter. Moderately increased left atrial volume. Mildly increased left atrial area. Mitral Valve Structurally normal mitral valve. Mild mitral regurgitation. No mitral stenosis. Aortic Valve Trileaflet aortic valve. Mild aortic regurgitation. No aortic stenosis. Tricuspid Valve Structurally normal tricuspid valve. No tricuspid stenosis. Mild tricuspid regurgitation. Pulmonic Valve Structurally normal pulmonic valve. No pulmonic stenosis. Pericardium No pericardial or pleural effusion. Aorta Mild aortic dilatation at the level of the sinuses of valsalva (root). CONCLUSIONS 1. Normal left ventricular size and systolic function 2. Mild mitral, aortic and tricuspid regurgitation 3. Mildly dilated ascending aorta Previewed by: Dr. Kimberly Neal MD (Electronically Signed) Final Date: 19 February 2024 17:52
[2024-02-19 20:01] LABS: Glucose,Whole Blood 207 mg/dL (70-110)
--- NOTE | 2024-02-19 20:28 | P.PN ---
Progress Note - Text Progress Note Date: 02/19/24 Interval history: I am rounding for Dr. Adnrzej Meyer who called me this evening for not feeling well. February 19, 2024: Patient vidal presented with a fall resulting in fractured ribs on the left side. Also found to be in atrial tachycardia. Seen by cardiology Dr. CRISTIANO Pennington. Placed on IV amiodarone. Also on Lopressor 12.5 twice daily. Patient moved out of the ICU to the telemetry floor today. Currently in sinus rhythm. Pain is controlled and he is resting but when he moves he does hurt more. Oral intake fair. Had a bowel movement. Active Medications Acetaminophen (Acetaminophen Tab 325 Mg Tab) 650 mg PO Q6HR PRN PRN Reason: Mild Pain or Fever > 100.5 Hydrocodone Bitart/Acetaminophen (Hydrocodone/Apap 5-325mg 1 Each Tab) 1 each PO Q8HR PRN PRN Reason: Pain Scale 7 to 10 Last Admin: 02/19/24 12:39 Dose: 1 each Amlodipine Besylate (Amlodipine 5 Mg Tab) 5 mg PO DAILY [facility] Atorvastatin Calcium (Atorvastatin 20 Mg Tab) 20 mg PO DAILY [facility] Last Admin: 02/19/24 09:11 Dose: 20 mg Dextrose/Water (Dextrose 50% Syringe 50 Ml) 25 ml IVP PER PROTOCOL PRN; Protocol PRN Reason: Hypoglycemia Dextrose/Water (Dextrose 50% Syringe 50 Ml) 50 ml IVP PER PROTOCOL PRN; Protocol PRN Reason: Hypoglycemia Heparin Sodium (Porcine) (Heparin Sodium,Porcine 5,000 Unit/Ml 1 Ml Vial) 5,000 unit SQ Q12HR [facility] Last Admin: 02/19/24 09:11 Dose: 5,000 unit Sodium Chloride (Saline 0.9%) 1,000 mls @ 75 mls/hr IV .[id number] [facility] Last Admin: 02/19/24 15:58 Dose: 75 mls/hr Amiodarone HCl 450 mg/ (Dextrose/Water) 250 mls @ 16.667 mls/hr IV .Q15H [facility]; Protocol Stop: 02/20/24 09:44 Last Admin: 02/19/24 15:57 Dose: 0.5 mg/min, 16.667 mls/hr Insulin Aspart (Insulin Aspart (Novolog) 100 Unit/Ml Vial) 0 unit SQ ACHS [facility]; Protocol Last Admin: 02/19/24 17:08 Dose: 10 unit Lidocaine (Lidocaine 4% Patch) 1 patch TOPICAL DAILY@1300 [facility]; Protocol Last Admin: 02/19/24 12:39 Dose: 1 patch Losartan Potassium (Losartan 50 Mg Tab) 50 mg PO DAILY [facility] Last Admin: 02/19/24 12:39 Dose: 50 mg Metoprolol Tartrate (Metoprolol Tartrate 12.5 Mg Tab) 12.5 mg PO BID [facility] Last Admin: 02/19/24 09:11 Dose: 12.5 mg Naloxone HCl (Naloxone 0.4 Mg/Ml 1 Ml Vial) 0.2 mg IV Q2M PRN PRN Reason: Opioid Reversal On examination: VITAL SIGNS: [98.3, 59, 12, 145 x 99, 99% room air] GENERAL APPEARANCE: BMI 29.4, in a recliner HEENT: Normal external appearance of nose and ear. Oral cavity normal EYES: Pupils equal. Conjunctiva normal. NECK: JVD not raised. Mass not palpable. RESPIRATORY: Respiratory effort normal. Lungs clear to auscultation. CARDIOVASCULAR: First and second sounds normal. No edema. ABDOMEN: Soft. Liver and spleen not palpable. No tenderness. No mass palpable. PSYCHIATRY: Alert and oriented x3. Mood and affect normal. Musculoskeletal: Tenderness in the left chest wall reproducible Investigation 2D echo: EF 55 to 60%. Severely increased left ventricular wall thickness. X-ray ribs: Left lateral fifth and 7 fractures with mild displacement Assessment plan: -Atrial tachycardia, increased rate. Currently controlled IV amiodarone. Lopressor Being followed by cardiology -Left lateral fifth and seventh rib fracture with mild displacement secondary to fall Pain controlled. K-pad. Incentive spirometry to prevent secondary pneumonia -Diabetes mellitus type 2, chronically insulin Patient on insulin 70/30. Follow Accu-Cheks with sliding scale -Essential hypertension Amlodipine. Cozaar. Lopressor Care was discussed with patient. Questions answered. K-pad. Incentive spirometry. Follow-up with cardio.
[2024-02-20 05:53] LABS: Glucose,Whole Blood 291 mg/dL (70-110)
[2024-02-20 07:23] LABS: Basophils % (A) 1 %; Eosinophils # (A) 0.3 k/uL (0-0.7); Eosinophils % (A) 4 %; HCT 41.5 % (39.0-53.0); HGB 13.2 gm/dL (13.0-17.5); Lymphocytes # (A) 1.7 k/uL (1.0-4.8); Lymphocytes % (A) 22 %; MCH 29.6 pg (25.0-35.0); MCHC 31.8 g/dL (31.0-37.0); MCV 92.9 fL (80.0-100.0); Mean Platelet Volume 9.6; Monocytes # (A) 0.5 k/uL (0-1.0); Monocytes % (A) 7 %; Neutrophils # (A) 5.3 k/uL (1.3-7.7); Neutrophils % (A) 66 %; Platelet Count 225 k/uL (150-450); RBC 4.46 m/uL (4.30-5.90); RDW 13.4 % (11.5-15.5)
[2024-02-20 07:24] LABS: Prothrombin Time 11.3 sec (10.0-12.5)
[2024-02-20] MEDS: HEPARIN SOD,PORK IN 0.45% NACL 25,000 UNIT in 0.45% NACL 1 250ML.BAG IV SCH (08:14)
[2024-02-20] MEDS: DEXTROSE 5% IN WATER 100 ML with AMIODARONE 150 MG IV ONE (08:14)
[2024-02-20] MEDS: amLODIPine 5 MG TAB PO SCH (08:16)
[2024-02-20 11:08] VITALS: TEMP 97.6
--- NOTE | 2024-02-20 11:28 | P.PN ---
Subjective Progress Note Date: 02/20/24 HPI: This is a 73-year-old gentleman with a known diagnosis of type 2 diabetes who takes insulin. He also has hypertension used to take lisinopril. He has not seen a physician in at least 2 years. On Sunday while walking his dog he was pulled and he fell down and fractured his ribs 5 and 7 lateral aspect. He went to the urgent care was found to be tachycardic and sent to the emergency room. D-dimer was normal TSH was normal he appears to be in what is a atrial tachycardia/SVT at a rate of about 130 bpm rhythm is quite regular. I am asked to see him in this regard. I am recommending that we initiate him on amiodarone bolus and drip and also add losartan for BP control. His blood sugars are fairly well-controlled hemoglobin A1c is pending complaints of pain localized to the lateral aspect of the rib and also he has discomfort when he takes a deep breath. While I was evaluating him he converted to sinus rhythm with a borderline first-degree AV block. I will however give him the bolus of amiodarone 150 mg and 6 hours of drip. He is going in and out of atrial tachycardia at this time. His thyroid functions are normal 02/20/24 This gentleman is doing well today he is in sinus rhythm. Hemodynamically stable BP control is good I am asking that we we will discontinue amiodarone and send him home on a beta-nai and losartan combination. He can be discharged and I will see him in about 2 weeks in the office. Echo revealed good systolic function with mild mitral and tricuspid regurgitation without significant pulmonary hypertension. He also has rib fractures. This is as a result of mechanical fall. Patient came in with what looks like an atrial tachycardia no evidence of atrial fibrillation he is not anticoagulated. Physical exam reveals no JVD or carotid bruit S1-S2 heard normally no significant rub murmur or gallop lungs are clear abdomen and lower EXTR exam is unremarkable. Plan: Home on current medications including beta-blockers and losartan I will see him in the office in a few weeks. To call for questions advised to follow- up with PCP for blood sugar control Objective - Vital Signs Vital signs: Vital Signs Temp 97.6 F 02/20/24 08:05 Pulse 68 02/20/24 08:05 Resp 16 02/20/24 08:05 BP 156/91 02/20/24 08:05 Pulse Ox 99 02/20/24 08:05 FiO2 Intake & Output 02/19/24 02/20/24 02/20/24 18:59 06:59 18:59 Intake Total 1500 490 180 Output Total 0 Balance 1500 490 180 Weight 92.8 kg 98.9 kg Intake: IV 1300 Dextrose 5% in Water 100 100 ml @ 618 mls/hr IV .Q10M ONE with Amiodarone 150 mg Rx#:[id number] Sodium Chloride 0.9% 1, 1200 000 ml @ 75 mls/hr IV . [id number] [facility] Rx#:[id number] Intake, IV Titration 250 Amount Amiodarone 450 mg In 250 Dextrose 5% in Water 250 ml @ 0.5 MG/MIN 16.667 mls/hr IV .Q15H [facility] Rx#: [id number] Oral 200 240 180 Output: Urine 0 Other: Voiding Method Toilet Toilet Toilet # Voids 3 1 # Bowel Movements 1 - Labs CBC & Chem 7: 02/20/24 06:00 02/18/24 10:35 Labs: Abnormal Lab Results - Last 24 Hours (Table) 02/19/24 02/19/24 02/19/24 Range/Units 06:15 11:33 16:59 POC Glucose (mg/dL) 368 H 363 H (70-110) mg/dL Hemoglobin A1c 12.4 H (<=6.0) % 02/19/24 02/20/24 Range/Units 19:59 05:52 POC Glucose (mg/dL) 207 H 291 H (70-110) mg/dL Hemoglobin A1c (<=6.0) %
[2024-02-20 11:30] LABS: Glucose,Whole Blood 322 mg/dL (70-110)
[2024-02-20 12:45] VITALS: BP 144/84; PULSE 77; RESP 18
[2024-02-20] MEDS ORDERED: METOPROLOL TARTRATE 12.5 MG TAB PO SCH (21:00)
[2024-02-21] MEDS ORDERED: METOPROLOL TARTRATE 25 MG TAB PO SCH (09:00)
--- NOTE | 2024-02-21 21:17 | P.DS ---
Providers Date of admission: 02/19/24 06:40 Expected date of discharge: 02/20/24 Attending physician: Andrzej Meyer Consults: 02/18/24 12:58 Consult Physician Urgent Consulting Provider: [facility] Consult Reason/Comments: tachycardia Do you want consulting provider notified?: Yes Primary care physician: Stated None Hospital Course: Interval history: I am rounding for Dr. Andrzej Meyer who called me this evening for not feeling well. February 19, 2024: Patient send presented with a fall resulting in fractured ribs on the left side. Also found to be in atrial tachycardia. Seen by cardiology Dr. CRISTIANO Pennington. Placed on IV amiodarone. Also on Lopressor 12.5 twice daily. Patient moved out of the ICU to the telemetry floor today. Currently in sinus rhythm. Pain is controlled and he is resting but when he moves he does hurt more. Oral intake fair. Had a bowel movement. February 19: Seen by Dr. Pennington earlier cardiology today. Amiodarone discontinued. Will be discharged on beta-nai and losartan. He will see me in the office in about 2 weeks time. Discussed with patient. On examination: VITAL SIGNS: 97.6, 68, 16, 144/84, 98% room air GENERAL APPEARANCE: BMI 29.4, not in distress HEENT: Normal external appearance of nose and ear. Oral cavity normal EYES: Pupils equal. Conjunctiva normal. NECK: JVD not raised. Mass not palpable. RESPIRATORY: Respiratory effort normal. Lungs clear to auscultation. CARDIOVASCULAR: First and second sounds normal. No edema. ABDOMEN: Soft. Liver and spleen not palpable. No tenderness. No mass palpable. PSYCHIATRY: Alert and oriented x3. Mood and affect normal. Musculoskeletal: Tenderness in the left chest wall reproducible Investigation February 19: White count 8 hemoglobin 13.2 platelets 225 2D echo: EF 55 to 60%. Severely increased left ventricular wall thickness. X-ray ribs: Left lateral fifth and 7 fractures with mild displacement Assessment plan: -Atrial tachycardia, increased rate. Currently controlled IV amiodarone given discontinued.. Lopressor Will follow-up with Dr. CRISTIANO Pennington in the office in 2 weeks. -Left lateral fifth and seventh rib fracture with mild displacement secondary to fall Pain controlled. K-pad. Incentive spirometry to prevent secondary pneumonia Lidocaine patch -Diabetes mellitus type 2, chronically insulin Patient on insulin 70/30, 30 units twice daily. Follow Accu-Cheks with sliding scale -Essential hypertension Amlodipine. Cozaar. Lopressor Disposition: Home Plan - Discharge Summary New Discharge Prescriptions: New Metoprolol Tartrate [Lopressor] 25 mg PO DAILY #30 tab Metoprolol Tartrate [Lopressor] 12.5 mg PO HS #30 tab Losartan [Cozaar] 50 mg PO DAILY #30 tab Lidocaine 4% Patch 1 patch TOPICAL DAILY@1300 #30 patch Atorvastatin [Lipitor] 20 mg PO DAILY #30 tab amLODIPine [Norvasc] 5 mg PO DAILY #30 tab Continue Insulin NPH Hum/Reg Insulin Hm [NovoLIN 70-30 100 Unit/ml Vial] 30 unit SQ AC-BID Discharge Medication List Insulin NPH Hum/Reg Insulin Hm [NovoLIN 70-30 100 Unit/ml Vial] 30 unit SQ AC- BID 02/18/24 [History] Atorvastatin [Lipitor] 20 mg PO DAILY #30 tab 02/20/24 [Rx] Lidocaine 4% Patch 1 patch TOPICAL DAILY@1300 #30 patch 02/20/24 [Rx] Losartan [Cozaar] 50 mg PO DAILY #30 tab 02/20/24 [Rx] Metoprolol Tartrate [Lopressor] 12.5 mg PO HS #30 tab 02/20/24 [Rx] Metoprolol Tartrate [Lopressor] 25 mg PO DAILY #30 tab 02/20/24 [Rx] amLODIPine [Norvasc] 5 mg PO DAILY #30 tab 02/20/24 [Rx] Follow up Appointment(s)/Referral(s): Kimberly Neal MD [STAFF PHYSICIAN] - 02/29/24 8:45 am [facility] [REFERRING] - 1 Week (Please call to schedule follow up. ) Patient Instructions/Handouts: Supraventricular Tachycardia (DC), Rib Fracture (DC) Discharge/Stand Alone Forms: Area PCPs Discharge Disposition: HOME WITH HOME HEALTH SERVICES
== END 2024-02-20 16:33 | disposition home health service (06) | DRG 309 ==
LOC: EC 09:19 → 3SCARD 11:39 → 2SICU 15:11 → OBSVTOIN 02-19 06:40 → 3SCARD 02-19 18:05
PROVIDERS: ADMIT Family Medicine; ATTEND Family Medicine
PROC: 3E033RZ Introduction of Antiarrhythmic into Peripheral Vein, Percutaneous Approach (ICD-10-PCS; principal; 2024-02-19)
DX: I47.19 Other supraventricular tachycardia (principal); S22.42XA Multiple fractures of ribs, left side, initial encounter for closed fracture; E11.9 Type 2 diabetes mellitus without complications; I08.1 Rheumatic disorders of both mitral and tricuspid valves; I10 Essential (primary) hypertension; E78.00 Pure hypercholesterolemia, unspecified; M10.9 Gout, unspecified; I44.0 Atrioventricular block, first degree; S00.81XA Abrasion of other part of head, initial encounter; Y93.K1 Activity, walking an animal; W19.XXXA Unspecified fall, initial encounter; Z79.4 Long term (current) use of insulin; Z79.899 Other long term (current) drug therapy; Z28.310 Unvaccinated for COVID-19; Z28.21 Immunization not carried out because of patient refusal; Z71.3 Dietary counseling and surveillance
CPT/HCPCS: 36415; 80053; 83036; 83735; 84443; 84484; 85025; 85379; 85610; 85730; 93005; 93306; 96360; 96361; 99285